=== PATIENT | female | born 2000 | race Caucasian/White ===

== ENCOUNTER → 2020-03-26 07:22 | Observation (INO) ==
[2020-03-26 05:25] LABS: Bilirubin,Urine Negative (Negative); Blood,Urine Large (Negative); Clarity,Urine Cloudy (Clear); Color,Urine Yellow (Yellow); Glucose,Urine (UA) Normal (Normal); Ketones,Urine Negative (Negative); Leukocyte Esterase,Urine Negative (Negative); Nitrite,Urine Negative (Negative); Protein,Urine Negative (Neg-Trace); Specific Gravity,Urine 1.014 (1.010-1.025); Urobilinogen,Urine Normal (Normal)
[2020-03-26 05:27] LABS: Bacteria,Urine None Seen per hpf (None-Few); Hyaline Casts,Urine None Seen per lpf (None-Few); Squamous Epithelial Cell,Urine Many per lpf (None-Few); WBC,Urine 0-3 per hpf (0-3)
== END | disposition home or self-care (01) ==
LOC: 1NENULAB
PROVIDERS: ADMIT Obstetrics & Gynecology; ATTEND Obstetrics & Gynecology

== ENCOUNTER → 2020-06-24 14:50 | Observation (INO) | END | disposition home or self-care (01) | LOC: 1NENULAB | PROVIDERS: ADMIT Obstetrics & Gynecology; ATTEND Obstetrics & Gynecology ==

== ENCOUNTER 2020-06-29 06:18 | Inpatient (IN) ==
[2020-06-29] MEDS ORDERED: Lidocaine 1% 20 ML MDV INFILT PRN (06:39)
[2020-06-29] MEDS ORDERED: Famotidine 20 MG/2 ML VIAL IVP PRN (06:39)
[2020-06-29] MEDS ORDERED: *HR* FentaNYL (PF) 100 MCG/2 ML VIAL IVP PRN (06:39)
[2020-06-29] MEDS ORDERED: Naloxone 0.4 MG/ML INJ IVP PRN (06:39)
[2020-06-29] MEDS ORDERED: Metoclopramide 10 MG/2 ML VIAL IVP PRN (06:39)
[2020-06-29 06:56] LABS: Basophils % 0.2 %; Eosinophils # 0.1 K/mcL (0.0-0.6); Eosinophils % 0.7 %; Hematocrit 30.6 % (35.3-44.9); Hemoglobin 10.3 g/dL (11.5-15.4); Immature Granulocytes % 0.7 % (0-4); Lymphocytes % 16.5 %; Mean Corpuscular HGB Conc 33.7 g/dL (31.6-35.5); Mean Corpuscular Hemoglobin 28.6 pg (28.0-33.3); Mean Platelet Volume 11.5 fL (9.4-12.4); Monocytes # 0.8 K/mcL (0.0-1.3); Monocytes % 6.8 %; Neutrophils # 9.2 K/mcL (1.6-8.9); Platelet Count 252 K/mcL (140-400); Segmented Neutrophils % 75.1 %; White Blood Count 12.2 K/mcL (4.3-11.1)
[2020-06-29 07:38] LABS: Creatinine,Urine 59 mg/dL; Protein/Creatinine Ratio,Urine 0.27 mg/mg (0.00-0.20)
[2020-06-29 07:48] LABS: Alanine Aminotransferase 10 Units/L (7-52); Aspartate Amino Transferase 14 Units/L (13-39); BUN/Creatinine Ratio 10 (6-26); Blood Urea Nitrogen 4 mg/dL (6-20); Lactate Dehydrogenase 137 Units/L (140-271); Uric Acid 3.9 mg/dL (2.3-7.6); eGFR For African Americans > 60 (> 60); eGFR For Non-African Americans > 60 (> 60)
[2020-06-29 08:22] LABS: Amphetamine Screen,Urine Negative ng/mL (Cutoff=1000); Barbiturate Screen,Urine Negative ng/mL (Cutoff=200); Benzodiazepines Screen,Urine Negative ng/mL (Cutoff=200); Cannabinoid Screen,Urine Negative ng/mL (Cutoff = 50); Cocaine Screen,Urine Negative ng/mL (Cutoff= 300); Opiate Screen,Urine Negative ng/mL (Cutoff=300); Phencyclidine Screen,Urine Negative ng/mL (Cutoff=25)
[2020-06-29] MEDS: miSOPROStoL 25 MCG TABLET PO PRN ×2 (08:38→13:26)
[2020-06-29] MEDS ORDERED: Ondansetron 4 MG/2 ML VIAL IVP PRN ×2 (08:58→19:40)
[2020-06-29] MEDS: Ringers Solution, Lactated 1,000 ML IVC SCH ×3 (13:26→17:41)
[2020-06-29] MEDS ORDERED: *HR* FentaNYL (PF) 100 MCG/2 ML VIAL EP ONE (13:39)
[2020-06-29] MEDS ORDERED: EPHEDrine 50 MG/ML VIAL IVP PRN (13:39)
[2020-06-29] MEDS ORDERED: *HR* FentaNYL (PF) 100 MCG/2 ML VIAL ONE ×2 (13:53→23:43)
[2020-06-29] MEDS: Epidural Premix (fent/bupiv) 110 ML EP SCH ×2 (14:18→21:39)
[2020-06-29] MEDS ORDERED: Oxytocin 20 units/ LR 1000 mL 20 UNIT/1,000 ML BAG IVC SCH (20:00)
[2020-06-30] MEDS ORDERED: Measles/Mumps/Rubella Vacc 0.5 ML VIAL SQ PRN (04:08)
[2020-06-30] MEDS ORDERED: Rho Immune Globulin 1,500 UNIT SYRINGE IM PRN (04:08)
[2020-06-30] MEDS ORDERED: Oxytocin 20 units/ LR 1000 mL 20 UNIT/1,000 ML BAG IVC SCH (04:08)
[2020-06-30] MEDS ORDERED: Acetaminophen 325 MG TABLET PO PRN (04:08)
[2020-06-30] MEDS: Ibuprofen 600 MG TABLET PO PRN ×3 (05:04→20:18)
[2020-06-30] MEDS: Prenatal Vit/FA 1 EACH TABLET PO SCH (08:39)
[2020-06-30] MEDS ORDERED: NON-FORMULARY MEDICATION 1 EACH EACH (Pnv No.95/Ferrous Fum/Folic Ac [Prenatal Caplet] 1 T PO SCH (09:00)
[2020-07-01] MEDS: Prenatal Vit/FA 1 EACH TABLET PO SCH (07:32)
[2020-07-01] MEDS: Ibuprofen 600 MG TABLET PO PRN ×2 (07:32→20:47)
[2020-07-01 08:36] LABS: Basophils # 0.1 K/mcL (0.0-0.2); Basophils % 0.4 %; Eosinophils # 0.1 K/mcL (0.0-0.6); Eosinophils % 0.6 %; Hematocrit 28.2 % (35.3-44.9); Hemoglobin 9.8 g/dL (11.5-15.4); Immature Granulocytes % 1.1 % (0-4); Lymphocytes # 2.6 K/mcL (0.6-4.6); Lymphocytes % 17.8 %; Mean Corpuscular HGB Conc 34.8 g/dL (31.6-35.5); Mean Corpuscular Hemoglobin 29.5 pg (28.0-33.3); Mean Corpuscular Volume 84.9 fL (83.0-100.0); Mean Platelet Volume 11.4 fL (9.4-12.4); Monocytes # 0.8 K/mcL (0.0-1.3); Monocytes % 5.5 %; Neutrophils # 10.8 K/mcL (1.6-8.9); Platelet Count 209 K/mcL (140-400); Red Blood Count 3.32 M/mcL (3.82-4.97); Red Cell Distribution Width 12.6 % (11.5-14.5); Segmented Neutrophils % 74.6 %; White Blood Count 14.5 K/mcL (4.3-11.1)
[2020-07-02 08:08] VITALS: BP 143/91
[2020-07-02] MEDS: Prenatal Vit/FA 1 EACH TABLET PO SCH (08:37)
[2020-07-02] MEDS: Ibuprofen 600 MG TABLET PO PRN (08:38)
== END 2020-07-02 14:00 | disposition home or self-care (01) | DRG 805 ==
LOC: 1NENULAB 06:18 → 1NENUOBS 06-30 04:00
PROVIDERS: ADMIT Student in an Organized Health Care Education/Training Program; ATTEND Student in an Organized Health Care Education/Training Program